=== PATIENT | female | born 1955 | race Caucasian/White ===

== ENCOUNTER → 2018-02-08 | Day surgery (SDC) | payer BC, OTHER ==
[2018-01-30 09:33] VITALS: BMI 36.0
[~2018-02-08] VITALS: Ht 157.5 cm; Wt 90.0 kg
[~2018-02-08] MED LIST: ATOR10TA82 PO; GLC/500 PO; LIDOCAINE HCL 2% 2 ML VIAL (20MG/ML) ONE; LISI-729 PO; PROPOFOL IV EMULSION 10 MG/ML 20 ML VIAL ONE
[2018-02-08 08:54] VITALS: Ht 157.5 cm; Wt 90.0 kg
--- NOTE | 2018-02-08 09:10 | Endo History and Physical ---
History & Physical Date of Service: February 08, 2018. Chief Complaint: SCREENING FOR COLON CANCER Referring Physician: ONDINA SURESH History of Present Illness 62 yo CF who presents for screening colonoscopy. Past Surgical History Hx Cardiac Surgery: No Hx Internal Defibrillator: No Hx Pacemaker: No Hx Abdominal Surgery: No Hx of Implantable Prosthesis: No Hx Post-Op Nausea and Vomiting: No Hx Cancer Surgery: No Hx Thoracic Surgery: No Hx Orthopedic: No Hx Urinary Tract Surgery: No Family History Colon CA Social History Smoking Status: Never Smoker Hx Substance Use: No Hx Alcohol Use: No Allergies Coded Allergies: NSAIDs (Verified Allergy, Unknown, GI UPSET, 01/30/18) Penicillins (Verified Allergy, Unknown, UNKNOWN, 01/30/18) Current Medications Reported Home Medications Medications Dose Route/Sig Max Daily Dose Days Date Category Lipitor (Atorvastatin Calcium) 10 Mg Tab 10 Mg PO QPM 01/30/18 Reported Glucophage (Metformin Hcl) 500 Mg Tab 1,000 Mg PO BID 01/30/18 Reported Zestril (Lisinopril) 5 Mg Tab 5 Mg PO QAM 01/30/18 Reported Vital Signs Weight (Kilograms): 90.00 Height (Feet): 5 Height (Inches): 2 Physical Exam General Appearance: WD/WN, no apparent distress Respiratory/Chest: Auscultation: breath sounds normal Cardiovascular: Heart Auscultation: RRR Abdomen: Bowel Sounds: normal Inspection & Palpation: soft, non-distended, no tenderness, guarding & rebound Assessment and Plan Assessment: 62 yo CF who presents for screening colonoscopy. Plan: Proceed with colonoscopy.
--- NOTE | 2018-02-08 09:54 | GI REPORT ---
Patient Name: Radha Watson Procedure Date: 02/08/2018 9:12 AM Date of : 1955 Admit Type: Outpatient Age: 62 Gender: Female Attending MD: Issac Dickson DO Procedure: Colonoscopy Providers: Issac Dickson DO Referring MD: Nannette Hill Indications: Screening for colorectal malignant neoplasm Medicines: Monitored Anesthesia Care Complications: No immediate complications. Estimated Blood Loss: Estimated blood loss: none. Procedure: Pre-Anesthesia Assessment: - Prior to the procedure, a History and Physical was performed, and patient medications and allergies were reviewed. The patient's tolerance of previous anesthesia was also reviewed. The risks and benefits of the procedure and the sedation options and risks were discussed with the patient. All questions were answered, and informed consent was obtained. Prior Anticoagulants: The patient has taken no previous anticoagulant or antiplatelet agents. ASA Grade Assessment: II - A patient with mild systemic disease. After reviewing the risks and benefits, the patient was deemed in satisfactory condition to undergo the procedure. After I obtained informed consent, the scope was passed under direct vision. Throughout the procedure, the patient's blood pressure, pulse, and oxygen saturations were monitored continuously. The scope was introduced through the anus and advanced to the terminal ileum. The colonoscopy was performed without difficulty. The patient tolerated the procedure well. The quality of the bowel preparation was good. The terminal ileum, ileocecal valve, appendiceal orifice, and rectum were photographed. Findings: The perianal and digital rectal examinations were normal. Scattered small-mouthed diverticula were found in the entire colon. Non-bleeding internal hemorrhoids were found during retroflexion. The hemorrhoids were small. Impression: - Diverticulosis in the entire examined colon. - Non-bleeding internal hemorrhoids. - No specimens collected. Recommendation: - Resume previous diet. - Continue present medications. - Repeat colonoscopy in 10 years for surveillance. - Return to primary care physician as previously scheduled. Issac Dickson DO 02/08/2018 9:53:46 AM This report has been signed electronically. Note Initiated On: 02/08/2018 9:12 AM Number of Addenda: 0 I attest to the content of the Intraoperative Record and orders documented therein, exceptions below {[id number]}
[2018-02-08 10:20] VITALS: BP 142/88; PULSE 77; O2SAT 97
--- NOTE | 2018-02-08 10:23 | Anesthesiology Progress Note ---
Anesthesia Post Op Note Date & Time February 08, 2018 at 10:23 Vital Signs Pain Intensity: 0 Vital Signs Past 12 Hours Date Time Temp Pulse Resp B/P (MAP) Pulse Ox O2 Delivery O2 Flow Rate FiO2 02/08/18 10:20 77 20 142/88 (106) 97 Room Air 02/08/18 10:04 80 16 149/85 (106) 98 Room Air 02/08/18 09:49 88 16 118/65 (82) 95 Room Air 02/08/18 09:07 150/90 (110) 02/08/18 09:04 36.7 102 20 164/103 (123) 96 Room Air Notes Mental Status: alert / awake / arousable, participated in evaluation Pt Amnestic to Procedure: Yes Nausea / Vomiting: adequately controlled Pain: adequately controlled Airway Patency, RR, SpO2: stable & adequate BP & HR: stable & adequate Hydration State: stable & adequate Anesthetic Complications: no major complications apparent
--- NOTE | 2018-02-08 10:36 | Discharge Instructions ---
Endoscopy Patient Instructions Date / Procedure(s) Performed February 08, 2018. Colonoscopy Allergy Information Coded Allergies: NSAIDs (Verified Allergy, Unknown, GI UPSET, 02/08/18) Penicillins (Verified Allergy, Unknown, UNKNOWN, 02/08/18) Discharge Date / Findings February 08, 2018. Diverticulosis Internal hemorrhoids Medication Instructions Stopped Medication(s): METFORMIN LAST DOSE 02/07/18 OK to resume all medications today as prescribed Reported Home Medications Medications Dose Route/Sig Max Daily Dose Days Date Category Lipitor (Atorvastatin Calcium) 10 Mg Tab 10 Mg PO QPM 01/30/18 Reported Glucophage (Metformin Hcl) 500 Mg Tab 1,000 Mg PO BID 01/30/18 Reported Zestril (Lisinopril) 5 Mg Tab 5 Mg PO QAM 01/30/18 Reported Provider Instructions Activity Restrictions - No exercising or heavy lifting for 24 hours. - Do not drink alcohol the day of the procedure. - Do not drive a car or operate machinery until the day after the procedure. - Do not make any important decisions or sign important papers in 24 hours after the procedure. Following Day: - Return to full activity which may include returning to work/school. Diet Start your diet with liquids and light foods (jello, soup, juice, toast). Then eat your usual diet if not nauseated. Treatment For Common After Affects For mild abdominal pain, bloating, or excessive gas: - Rest - Eat lightly - Lie on right side Follow-Up Information Follow-up with ONDINA SURESH as scheduled Anesthesia Information What You Should Know You have had a procedure that required some medicine to reduce anxiety and discomfort. This treatment is called moderate sedation. After receiving the treatment, you may be sleepy, but you will be able to breathe on your own. The effects of the treatment may last for several hours. Follow these instructions along with Activity/Diet recommendations noted above: * Do NOT do anything where dizziness or clumsiness would be dangerous. * Rest quietly at home today, then you can be up and about tomorrow. * Have a responsible person stay with you the rest of today. * You may have had an I.V. today. If so, you may take the dressing off later today. Recommendations Call your doctor if: * Trouble breathing * Continuous vomiting for more than 24 hours * Temperature above 101 degrees * Severe abdominal pain or bloating * Pain not relieved by pain medicine ordered * There is increased drainage or redness from any incision * A large amount of rectal bleeding greater than 2-3 tablespoons. (If you had a polyp/s removed or have hemorrhoids, a small amount of blood - from the rectum is to be expected.) * You have any unanswered questions or concerns. IN THE EVENT OF A SERIOUS EMERGENCY, GO TO THE NEAREST EMERGENCY ROOM Your discharge instructions were prepared by provider Issac Dickson. Patient Instructions Signature Page Radha Watson Patient (or Guardian) Signature/Date: I have read and understand the instructions given to me by my caregivers. Caregiver/RN/Doctor Signature/Date: The above-named patient and/or guardian has received patient instructions on this date. + Original Patient Signature Page (only) stays with chart. Please make copy for patient.
== END | disposition home or self-care (01) ==
LOC: C.GI 08:15
PROVIDERS: ATTEND Internal Medicine
DX: Z12.11 Encounter for screening for malignant neoplasm of colon (principal); K57.30 Diverticulosis of large intestine without perforation or abscess without bleeding; K64.8 Other hemorrhoids; E11.9 Type 2 diabetes mellitus without complications; E66.9 Obesity, unspecified; I10 Essential (primary) hypertension; E78.5 Hyperlipidemia, unspecified; M19.90 Unspecified osteoarthritis, unspecified site; Z88.5 Allergy status to narcotic agent; Z88.0 Allergy status to penicillin; Z79.899 Other long term (current) drug therapy; Z79.84 Long term (current) use of oral hypoglycemic drugs